=== PATIENT | male | born 1970 | race Caucasian/White ===

== ENCOUNTER 2025-02-07 07:42 | Emergency (ER) | payer OTHER ==
[~2025-02-07] VITALS: Ht 182.9 cm; Wt 86.6 kg
[2025-02-07 08:13] LABS: PLATELET COUNT (AUTO) 348 K/uL (150-450); RED BLOOD CELL COUNT(AUTO) 5.39 MIL/uL (4.5-6.0); RED CELL DISTRIBUTION WIDTH 14.5 % (11.5-15.0); WHITE BLOOD COUNT (AUTO) 10.8 K/uL (4.3-11.0)
[2025-02-07 08:20] LABS: CALCIUM, SERUM 9.3 mg/dL (8.5-10.1); CREATININE 1.1 mg/dL (0.6-1.3); SODIUM SERUM 140 mmol/L (136-145); UREA NITROGEN, BLOOD 15 mg/dL (7-18)
[2025-02-07 08:26] LABS: ALCOHOL, BLOOD < 3 mg/dL (0-10); ASPARTATE AMINOTRANSFERASE 16 U/L (15-37); TOTAL PROTEIN, SERUM 7.3 g/dL (6.4-8.2)
[2025-02-07 08:27] LABS: SERUM AMMONIA 19 umol/L (11-32)
[2025-02-07 08:29] LABS: INR 1.03 (0.91-1.10)
[2025-02-07] MEDS ORDERED: OLANZAPINE 10 MG VIAL IM ONE (08:29)
[2025-02-07] MEDS: OLANZAPINE 10 MG VIAL IM ONE (08:37)
[2025-02-07 09:42] LABS: APPEARANCE,URINE CLEAR (CLEAR); BLOOD, URINE NEGATIVE Ery/uL (NEGATIVE); LEUKOCYTE ESTERASE ,URINE NEGATIVE (NEGATIVE); NITRITE, URINE NEGATIVE (NEGATIVE); UGLUCOSE NEGATIVE (NEGATIVE)
[2025-02-07 09:56] LABS: ADD URINE CULTURE NO; SQUAMOUS EPITHELIAL CELL,UR Few /HPF (None Seen)
[2025-02-07 09:59] LABS: AMPHETAMINE, URINE POSITIVE (NEGATIVE); BARBITURATE, URINE NEGATIVE (NEGATIVE); BENZODIAZEPINE, URINE NEGATIVE (NEGATIVE); CANNABINOID, URINE POSITIVE (NEGATIVE); COCCAINE, URINE NEGATIVE (NEGATIVE); OPIATE, URINE NEGATIVE (NEGATIVE)
[2025-02-07 17:07] VITALS: BP 125/78; TEMP 98.8; O2SAT 98
== END 2025-02-07 17:07 | disposition home or self-care (01) ==
LOC: ER 07:59
DX: R41.82 Altered mental status, unspecified (principal); R53.83 Other fatigue; F19.10 Other psychoactive substance abuse, uncomplicated; F17.200 Nicotine dependence, unspecified, uncomplicated; Z79.899 Other long term (current) drug therapy
CPT/HCPCS: 99285; 96372; 93005; 71045; 70450; 82140; 85025; 80048; 80076; 81001; 36415; 84484 ×2; 85730; 80143; 80320; 80307; J1200; J3490; G0480